=== PATIENT | male | born 1945 | race Caucasian/White ===

== ENCOUNTER 2017-10-17 08:44 | Day surgery (SDC) | payer MEDICARE, OTHER, SELFPAY ==
[~2017-10-17 08:44] MED LIST: Lactated Ringers 1,000 ML IV SCH
[2017-10-17] MEDS ORDERED: fentaNYL 100 MCG/2 ML SDV ONE (10:41)
[2017-10-17] MEDS ORDERED: Propofol 200 MG/20 ML SDV ONE ×3 (10:41→11:51)
--- NOTE | 2017-10-17 16:23 | OR ---
PREOPERATIVE DIAGNOSES: 1. Guaiac-positive stool. 2. Polyp. 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 PROCEDURE PROPOSED: Total flexible colonoscopy. PROCEDURE DONE: Total flexible colonoscopy with partial polypectomy and tattooing. INDICATION: This is a 72-year-old gentleman who was found to have guaiac- positive stools about a year ago and came in now for colonoscopy. He denies any symptomatology. TECHNIQUE: The patient was brought to the endoscopy suite, placed in left lateral decubitus position. He was sedated per [employer] with propofol. A flexible video colonoscope was then passed transanally and under visualization advanced to the cecum. Examination revealed normal ascending, transverse, descending, and sigmoid colon. In the rectosigmoid junction, however, there was a friable firm mass that was suspicious for a possible early carcinoma and it measured about 2 cm in size. I was able to do a partial polypectomy with a hot snare technique, but it was too hard and grown into the wall of the rectum to get it completely removed. I then tattooed the area for further evaluation and there will be a pathology report pending. The remainder of the rectum was normal. I could not feel this mass with my finger and is higher up in that; it appeared to be right at about 10 cm from the anal verge. 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 PLAN: Pathology is pending. I am going to have him follow up with Dr. Post in 1 week for pathology report. I feel that he should be evaluated with a CAT scan of the abdomen to rule out metastatic disease, a CEA, and referral to Colorectal Surgery unless he has metastatic disease, then he should be referred on to Oncology. SCM: 10/17/2017 12:06:56 MODL: 10/17/2017 16:17:06 /[id number]
--- NOTE | 2017-10-24 08:27 | LETTER ---
10/23/2017 Marcelina Varela RE: MARCELINA PARSONS MARIA VICTORIA : 1945 Dear Kandis Maria Victoria, The lesion that you have in your low colon did indicate that it is a cancer. This will likely need surgical removal and I have recommended that you see Dr. Post if you have not already to have some further testing done such as a CAT scan of your abdomen and pelvis and some blood tests, and he can refer you on to a specialized surgeon. Respectfully,
== END 2017-10-17 13:13 | disposition home or self-care (01) ==
LOC: VM.SDS 08:44
PROVIDERS: ATTEND Surgery
DX: C19 Malignant neoplasm of rectosigmoid junction (principal); I10 Essential (primary) hypertension; F17.210 Nicotine dependence, cigarettes, uncomplicated; I73.9 Peripheral vascular disease, unspecified; E78.2 Mixed hyperlipidemia; F32.9 Major depressive disorder, single episode, unspecified
CPT/HCPCS: 00811; 45381; 45385; 88305; 88341; 88342; J2704; J3010; J7120

== ENCOUNTER 2024-04-02 11:24 | Emergency (ER) | payer MEDICARE ==
[2024-04-02 11:55] LABS: BASOPHILS PERCENT AUTO 0.3 % (0.2-1.2); EOSINOPHILS ABSOLUTE AUTO 0.1 x10^3/uL (0.0-0.5); EOSINOPHILS PERCENT AUTO 0.7 % (0.0-4.0); HEMATOCRIT 29.8 % (40.0-52.0); IMMATURE GRAN ABSOLUTE AUTO 0.15 x10^3/uL (0.00-0.07); LYMPHOCYTES ABSOLUTE AUTO 1.6 x10^3/uL (1.0-4.8); LYMPHOCYTES PERCENT AUTO 10.3 % (25.0-50.0); MEAN CORPUSCULAR HEMOGLOBIN 21.1 pg (26.0-32.0); MEAN CORPUSCULAR HGB CONC 30.2 g/dL (32.0-36.0); MONOCYTES ABSOLUTE AUTO 1.5 x10^3/uL (0.0-0.8); MONOCYTES PERCENT AUTO 9.3 % (2.0-11.0); NEUTROPHILS ABSOLUTE AUTO 12.2 x10^3/uL (1.8-7.7); NEUTROPHILS PERCENT AUTO 78.4 % (50.0-80.0); PLATELET COUNT,PLT 889 x10^3/uL (130-400); RED BLOOD CELL COUNT 4.26 x10^6/uL (4.5-6.0)
[2024-04-02 12:07] LABS: WHITE BLOOD CELL COUNT,WBC 15.6 x10^3/uL (4.0-10.0)
[2024-04-02 12:12] LABS: A/G RATIO 0.43; ALANINE AMINOTRANSFERASE,ALT 19 U/L (16-63); ALBUMIN 2.4 g/dL (3.4-5.0); ALKALINE PHOSPHATASE 106 U/L (46-116); ASPARTATE AMNIOTRANSFERASE,AST 15 U/L (15-37); BILIRUBIN TOTAL 0.6 mg/dL (0.2-1.0); BLOOD UREA NITROGEN,BUN 22 mg/dL (7-18); CARBON DIOXIDE,CO2 23 mmol/L (21-32); CHLORIDE,CL 100 mmol/L (98-107); CREATININE 1.8 mg/dL (0.70-1.30); GLUCOSE RANDOM 122 mg/dL (70-99); POTASSIUM,K 4.7 mmol/L (3.5-5.1); SODIUM,NA 135 mmol/L (136-145)
[2024-04-02] MEDS: traMADol 50 MG Tab PO ONE (12:18)
[2024-04-02 12:19] LABS: ANION GAP 16.7 mmol/L (5-15); ESTIMATED GFR 38 mL/min (>=60)
[2024-04-02 12:34] LABS: SEDIMENTATION RATE AUTO 107 mm/hr (0-15)
[2024-04-02 13:15] LABS: LACTIC ACID 1.7 mmol/L (0.4-2.0)
[2024-04-02 13:34] LABS: BILIRUBIN,URINE NEGATIVE (NEGATIVE); COLOR,URINE AMBER (YELLOW); GLUCOSE,URINE NEGATIVE (NEGATIVE); KETONES,URINE NEGATIVE (NEGATIVE); LEUKOCYTE ESTERASE,URINE NEGATIVE (NEGATIVE); NITRITE,URINE NEGATIVE (NEGATIVE); OCCULT BLOOD,URINE NEGATIVE (NEGATIVE); PH,URINE 5.5 (5.0-8.0); PROTEIN,URINE 30 mg/dL (NEGATIVE); UROBILINOGEN,URINE 0.2 EU/dL (0.2)
[2024-04-02 13:41] LABS: APPEARANCE,URINE CLEAR (CLEAR); BACTERIA,URINE RARE /HPF (NOT SEEN); MUCUS,URINE OCCASIONAL /LPF (NOT SEEN); RBC,URINE 0-5 /HPF (NOT SEEN); WBC,URINE 0-5 /HPF (NOT SEEN)
[2024-04-02] MEDS: HYDROmorphone 0.5 MG/0.5 ML Syringe IVPUSH ONE ×2 (15:04→19:35)
[2024-04-02] MEDS: Iopamidol 612 MG/ML 100 ML Bottle IVPUSH ONE (15:46)
[2024-04-02] MEDS: Cefepime 1 GM in Sodium Chloride 0.9% 100 ML IV ONE (17:56)
[2024-04-02] MEDS: ceFAZolin 2 GM Vial IVPUSH ONE (19:36)
[2024-04-02 22:37] LABS: LACTIC ACID 1.1 mmol/L (0.4-2.0)
[2024-04-02] MEDS: Lactated Ringers 1,000 ML IV ONE ×2 (22:53→22:54)
[2024-04-02] MEDS: metroNIDAZOLE/Normal Saline 500 MG in Premix Bag 1 BAG IV ONE (22:54)
[2024-04-03] MEDS ORDERED: Cefepime 2 GM in Sodium Chloride 0.9% 100 ML IV SCH (04:00)
== END 2024-04-02 23:18 | disposition short-term general hospital (02) ==
LOC: VM.ED 11:24
DX: M25.551 Pain in right hip (principal); M25.552 Pain in left hip; D75.839 Thrombocytosis, unspecified; N17.9 Acute kidney failure, unspecified; I10 Essential (primary) hypertension
CPT/HCPCS: 36415; 72170; 73700-RT; 74177; 80053; 81001; 83605; 85025; 85652; 86140; 96365; 96375; 96376; 99285; 99285-25; A9270-GY; J0690; J0692; J1170; J1836; J3490; J7120; Q9967